=== PATIENT | female | born 1980 | race African-American/Black ===

== ENCOUNTER 2020-02-27 19:02 | Emergency (ER) | payer BC, SELFPAY ==
--- NOTE | ~2020-02-27 | CT_ITS ---
EXAMINATION: CT abdomen pelvis w con EXAM DATE: 02/27/2020 20:18 INDICATION: Low abdominal pain. TECHNIQUE: Spiral CT of the abdomen and pelvis was performed without contrast. Axial, coronal and s agittal images were reviewed. The dose-length product (DLP) for this examination was 1103.19 mGy-cm. The exposure was tailored according to patient size (auto mA exposure control), and iterative recon struction (ASIR) was used as additional dose reduction technique. There is no prior study for compar olga. FINDINGS: There is a mass in the right liver lobe inferiorly measuring about 3.6 cm with incomplete p eripheral nodular enhancement, appearance is consistent with hemangioma. Adrenal glands, spleen, panc reas are unremarkable. Gallbladder is unremarkable. No biliary obstruction. Portal and splenic vein s are patent. Kidneys enhance symmetrically. There is no hydronephrosis. Fibroid uterus. The saran dder is unremarkable. There is no retroperitoneal or pelvic lymphadenopathy. The appendix is normal. The stomach and small bowel are unremarkable. There is expected amount of c olonic stool. No free intraperitoneal gas. The heart is normal in size. There are no pericardial or pleural effusions. The lung bases are unremarkable. There are no osteoblastic or osteolytic les ions identified. IMPRESSION: 1. No acute intra-abdominal findings. 2. Liver mass consistent with hemangioma. 3. Fibroid uterus. Reviewed, dictated and finalized at location A.
--- NOTE | ~2020-02-27 | CT_ITS ---
EXAMINATION: CT facial bones w con EXAM DATE: 02/27/2020 20:20 INDICATION: Parotid mass. TECHNIQUE: Spiral CT of the facial bones was acquired in the axial plane without contrast. Coronal reformatted images were also reviewed. The dose-length product (DLP) for this examination was 1197.6 8 mGy-cm. The exposure was tailored according to patient size, and iterative reconstruction (ASIR) w as used as additional dose reduction technique. There is no prior study for comparison. FINDINGS: In the left masseter muscle there is region of lower density, and asymmetry, measuring abou t 1.6 cm, has a central calcification measuring 6 mm. Underlying mandible is unremarkable. Could be g ranulomatous process. This is a chronic finding or has is developed more recently? No upper cervical lymphadenopathy. IMPRESSION: Nonspecific mass within the left masseter, with central calcification. Central calcificat ion suggests could be chronic granulomatous process but recommend ENT consult for possible histologic correlation. Reviewed, dictated and finalized at location A. IMPRESSION: Nonspecific mass within the left masseter, with central calcificati on. Central calcification suggests could be chronic granulomatous process but r ecommend ENT consult for possible histologic correlation.
--- NOTE | 2020-02-27 19:08 | ED.GENADULT ---
HPI - General Adult General Chief complaint: Vaginal Bleeding Stated complaint: vaginal cramping/neck lump Time Seen by Provider: 02/27/20 19:08 Source: patient Mode of arrival: ambulatory Limitations: no limitations History of Present Illness HPI narrative: Patient is a 39-year-old female who presents for evaluation of lower abdominal pain. Patient reports that she is currently menstruating, has been having severe cramps with menstruation over the past 2-1/2 years. Patient has followed with Dr. Jackson in the past, but lost insurance, had no ability to afford primary care, thus has not sought care in over 2 years for this problem. Patient reports the pain is sharp, stabbing in nature in the lower abdomen without back pain. No fever, nausea or vomiting. No chest pain. Patient reports normal vaginal bleeding, denies mucoid discharge. She also reports some dysuria. Recent intercourse was 2 weeks ago. She had a history of a sexually transmitted infection in the year 1999 which was treated. No purulent discharge, no itching or lesions that the patient has noticed. Patient also reports that she has had a 2-year history of a mass on the left side of her face. She has been hiding it with her hair, and reports that it never bothered her much until it started to become somewhat firm and painful. Is worse with eating. No neck pain or neck swelling. Patient has no history of cancer. Related Data Allergies Allergy/AdvReac Type Severity Reaction Status Date / Time No Known Allergies Allergy Verified 02/27/20 20:01 Review of Systems Review of Systems: Narrative: CONSTITUTIONAL: Denies fever, chills, or sweats. EYES: Denies visual changes, redness, or discharge. ENT: Denies rhinorrhea, congestion, sore throat, or otalgia. CARDIOVASCULAR: Denies chest pain, palpitations, or edema. RESPIRATORY: Denies cough or dyspnea. GASTROINTESTINAL: Reports lower abdominal pain, denies nausea, vomiting or diarrhea GENITOURINARY: Reports dysuria, reports current menses SKIN: Denies rash or itching. MUSCULOSKELETAL: Denies back pain, joint pain, or myalgia. NEUROLOGIC: Denies headache, numbness, or weakness. [facility] Surgical History Surgical History (Updated 02/27/20 @ 19:20 by Darling Westfall MD) H/O tubal ligation Social History Social History (Updated 02/27/20 @ 19:20 by Darling Westfall MD) Smoking status: Never smoker Alcohol intake: never Substance use: never Gender identity (if verbalized by the patient): Female Exam Narrative: Exam Narrative: GENERAL: Awake, alert, conversant HEAD: Normocephalic, atraumatic. EYES: PERRLA and EOMI. ENT: Nares clear, no rhinorrhea or epistaxis. Mucous membranes moist. Mobile, firm mass approximately 2 cm, well-circumscribed left mandibular area, no cervical lymphadenopathy, no erythema, mildly tender to palpation. Nonfluctuant. NECK: Supple. CHEST: No respiratory distress, breathing even and non labored HEART: Regular rate, sinus rhythm ABDOMEN:Non distended, positive suprapubic tenderness to palpation, no guarding, nonrigid, no flank tenderness BROOM STITCHER/: Labia majora and minora normal without lesions. Vagina with+ blood, no brisk bleeding. No cervical motion tenderness. No adnexal tenderness or fullness bilaterally. No mucoid discharge present. EXTREMITIES: Normal range of motion. No edema. SKIN: Warm, dry, no rash. NEURO:No focal deficits. Alert and oriented x3 Course Course Emergency Course: The patient presented for evaluation of painful vaginal bleeding which is been present over the past 2 years for the patient, as well as chronic left facial mass. At the time of initial assessment, ABCs are intact and vital signs are stable. Physical examination notable for mobile, mildly tender mass about the left mandible. Nonerythematous. No associated lymphadenopathy. No thyromegaly. Laboratory results show mild anemia. This is likely related to the patient's chronic, very heavy menses. No UTI.
[2020-02-27 19:16] VITALS: BP 122/71; PULSE 72; RESP 18; TEMP 36.8; O2SAT 100
[2020-02-27 19:39] LABS: Basophils Percent Auto 0.5 % (0.2-1.2); Eosinophils Absolute Auto 0.2 K/mm3 (0-0.3); Eosinophils Percent Auto 2.2 % (0-4.4); Hematocrit 32.8 % (37.0-47.0); Hemoglobin 9.4 g/dL (12.0-15.0); Immature Granulocyte Absolute 0.01 K/mm3 (0.00-0.031); Immature Granulocyte Percent A 0.1 % (0-0.5); Lymphocytes Absolute Auto 2.05 K/mm3 (0.9-3.2); Lymphocytes Percent Auto 27.7 % (18.3-44.2); Mean Corpuscular HGB Conc 28.7 g/dl (32-36); Mean Corpuscular Hemoglobin 20.5 pg (26-34); Mean Corpuscular Volume 71.5 fl (80-100); Mean Platelet Volume 10.3 fl (7.4-10.4); Monocytes Absolute Auto 0.5 K/mm3 (0.1-0.6); Monocytes Percent Auto 7.3 % (2.6-8.5); Neutrophils Absolute Auto 4.6 K/mm3 (1.3-6.7); Neutrophils Percent Auto 62.2 % (45.5-73.1); Platelet Count Result 328 k/mm3 (150-375); Red Blood Count 4.59 M/mm3 (4.2-5.4); Red Cell Distribution Width 18.2 % (11.5-14.5); White Blood Count 7.4 K/mm3 (4.5-10.0)
[2020-02-27 19:44] LABS: Add Urine Microscopic? YES; Appearance Urine Clear (Clear); Bilirubin Urine Negative (Negative); Blood Urine 3+ (Negative); Color Urine Yellow (Yellow); Glucose Urine UA Negative (Negative); Ketones Urine Negative (Negative); Leukocyte Esterase Ur Trace LEU/UL (Negative); Mucus Urine Rare /lpf; Nitrate Urine Negative (Negative); Protein Urine 1+ mg/dL (Negative); RBC Urine >75 /hpf (0-2); Specific Grav Ur 1.025 (1.001-1.035); Squamous Epithelial Cell Urine Many /hpf (Few); Urobilinogen Urine Negative mg/dL (<2.0)
[2020-02-27 19:49] LABS: Hypochromasia 2+ (NORMAL); Platelet Estimate Adequate (Adequate); Stomatocytes 1+ (NORMAL)
[2020-02-27 19:51] LABS: Alanine Aminotransferase 16 U/L (4-35); Albumin Level 4.6 g/dL (3.5-5.1); Alkaline Phosphatase 66 U/L (38-126); Aspartate Amino Transferase 25 U/L (14-36); Bilirubin,Total 0.5 mg/dL (0.2-1.3); Blood Urea Nitrogen 9 mg/dL (7-17); Calcium 9.4 mg/dL (8.4-10.2); Carbon Dioxide 23 mmol/L (22-30); Chloride 107 mmol/L (98-107); Estimated CRCL calculation 100 ml/min; Estimated Glomerular Filt Rate > 60; Glucose 99 mg/dL (65-105); Potassium 3.6 mmol/L (3.4-5.0); Sodium 138 mmol/L (137-145)
[2020-02-27 19:54] LABS: Target Cells 1+ (NORMAL)
[2020-02-27 19:55] LABS: Ovalocytes 1+ (NORMAL)
[2020-02-27] MEDS: ACETAMINOPHEN 500 MG TABLET 1000 MG PO (20:32)
[2020-02-27] MEDS: SODIUM CHLORIDE 0.9% IV 1,000 ML 999 ML IV CONT (20:32)
[2020-02-27] MEDS: ONDANSETRON INJ 4 MG/2 ML VIAL IV PUSH (20:32)
[2020-02-27] MEDS: MORPHINE SULFATE 4 MG/ML INJ IV PUSH (20:32)
[2020-02-27 20:33] VITALS: BP 111/68; PULSE 64; RESP 18; O2SAT 100
[2020-02-27 21:33] VITALS: BP 120/69; PULSE 60; RESP 16; TEMP 36.7; O2SAT 100
[2020-02-27 21:56] VITALS: BP 120/69; PULSE 60; RESP 16; TEMP 36.7; O2SAT 100
== END 2020-02-27 22:14 | disposition home or self-care (01) ==
PROVIDERS: Emergency Provider Emergency Medicine
DX: N93.8 Other specified abnormal uterine and vaginal bleeding (principal); D25.9 Leiomyoma of uterus, unspecified; M62.89 Other specified disorders of muscle; A59.00 Urogenital trichomoniasis, unspecified; D64.9 Anemia, unspecified; R16.0 Hepatomegaly, not elsewhere classified
CPT/HCPCS: 36415; 70487; 74177; 80053; 81001; 81025; 85025; 87070; 87491; 87591; 87808; 96361; 96374; 96375; 99284; A9270; J2270; J2405; J7030; Q9967

== ENCOUNTER 2020-03-27 05:48 | Outpatient (CLI) | payer BC, SELFPAY ==
[2020-03-27 16:38] LABS: SARS-CoV-2 RNA PCR Negative
== END 2020-03-27 05:49 | disposition home or self-care (01) ==
LOC: ANHCOVIDDT 05:49
PROVIDERS: Visit Provider Obstetrics & Gynecology Gynecology
DX: Z01.818 Encounter for other preprocedural examination (principal); Z11.59 Encounter for screening for other viral diseases
CPT/HCPCS: 87635; U0003

== ENCOUNTER 2020-03-28 16:44 | Inpatient (IN) | payer BC, SELFPAY ==
[2020-03-27 11:10] VITALS: BMI 33.3
[2020-03-28] VITALS (12 sets, daily range): BP systolic 99–135; BP diastolic 55–98; PULSE 48–87; RESP 12–29; TEMP 36.1–37.2; O2SAT 96–100
[2020-03-28] MEDS: LACTATED RINGERS 1,000 ML 30 ML IV CONT ×2 (12:30→14:30)
--- NOTE | 2020-03-28 12:32 | WPDANESEPPF ---
Anes - Initial Pre Proc Eval Procedure: Operation Date: 03/28/20 13:30 Proposed Procedures p Hysteroscopy Dilation and Curettage With Myosure - Suzi Jackson MD Date/Time: 03/28/20 12:32 Surgeon: Suzi Jackson MD Pre Op Diagnosis: Menorrhagia With Anemia Patient Data Age: 39 Gender: F Height: 5 ft 4 in Weight: 88.8 kg Last Vital Signs Temp 37.2 C 03/28/20 12:10 Pulse 63 03/28/20 12:10 Resp 15 03/28/20 12:10 BP 125/57 L 03/28/20 12:10 Pulse Ox 100 03/28/20 12:10 Allergies Allergy/AdvReac Type Severity Reaction Status Date / Time No Known Allergies Allergy Verified 03/27/20 11:11 Home Medications Medication Instructions Recorded Confirmed Type ferrous sulfate 325 mg PO BID 30 Days #60 tablet 02/27/20 03/27/20 Rx cyclobenzaprine 10 mg PO TID 03/27/20 03/27/20 History Patient hx anesthesia problems: none Family hx anesthesia problems: none PMFSH Past Medical History Medical History Anemia Surgical History Surgical History H/O tubal ligation Social History Social History Smoking status: Never smoker Alcohol intake: never Substance use: never Gender identity (if verbalized by the patient): Female Anes - Eval Final PreProcedure Day of Procedure 03/28/20 12:32 Patient weight: obese Heart: regular rate and rhythm Lungs: clear to auscultation Airway: Mallampati scale class II Neurological: alert and oriented Last oral intake: >/= 8 hours ASA classification: II Emergent: no Anesthetic plan: proceed Anesthesia type and monitoring: general GIVS and standard monitoring Informed Consent: The patient's anesthetic plan and its attendant risks and benefits were discussed with the patient/family/POA. Questions were solicited and answers provided to the satisfaction of the patient/family/POA.
--- NOTE | 2020-03-28 13:07 | PM.HPGS ---
History of Present Illness History of Present Illness Consent: Risks, benefits, and alternatives have been discussed and questions answered. Patient agrees to proceed with procedure. Chief complaint: Menorrhagia With Anemia Narrative: Niurka Daly is a 39 year old female with menorrhagia and anemia. U/s done showed fibroid. Recommend to evaluate with hysteroscopy D&C and if needed myosure. Risks of infection, bleeding, perforation, and fluid imbalance reviewed. Agrees to proceed. [facility] Past Medical History Medical History (Updated 03/28/20 @ 13:09 by Suzi Jackson MD) Anemia Anxiety Depression PTSD (post-traumatic stress disorder) Twin delivery by Surgical History Surgical History H/O tubal ligation Social History Social History Smoking status: Never smoker Alcohol intake: never Substance use: never Gender identity (if verbalized by the patient): Female Meds Home Medications and Allergies Home Medications Medication Instructions Recorded Confirmed Type ferrous sulfate 325 mg PO BID 30 Days #60 tablet 02/27/20 03/28/20 Rx cyclobenzaprine 10 mg PO TID 03/27/20 03/28/20 History Allergies Allergy/AdvReac Type Severity Reaction Status Date / Time No Known Allergies Allergy Verified 03/27/20 11:11 Vital Signs Vital Signs - 24 hr 03/28/20 12:10 Temperature 98.9 F Pulse Rate 63 Respiratory Rate 15 Blood Pressure 125/57 L Pulse Oximetry 100 Exam Const: General: healthy appearing and alert Orientation/consciousness: patient oriented x3 Resp: Effort & Inspection: normal respiratory effort Auscultation: clear to auscultation bilaterally Cardio: Rate: regular rate Rhythm: regular rhythm GI: GI Palp: Yes Soft to palpation, No Tenderness to palpation present (GI) and No Palpable mass present : External Female Exam: normal external appearance Speculum Exam - Vagina: normal appearance of the vagina and normal vaginal discharge Speculum Exam - Cervix: normal appearance of the cervix Bimanual exam- vagina & uterus: uterine size normal and consistency normal Bimanual Exam- Adnexa, other: normal adnexae and No adnexal tenderness Neuro: General: patient oriented x3 Assessment and Plan Assessment and plan (1) Menorrhagia: Code(s): N92.0 - Excessive and frequent menstruation with regular cycle Status: Acute Assessment and Plan: proceed with hysteroscopy with D&C, possible myosure
--- NOTE | 2020-03-28 14:01 | SUR.OPER ---
5000 ml of saline in 3700 ml of saline out
--- NOTE | 2020-03-28 14:04 | PM.OP ---
Procedure Note - Brief Procedure Note - Brief Date of procedure: 03/28/20 Pre-op diagnosis: Menorrhagia With Anemia Post-op diagnosis: same Procedure performed: D&C hysterscopy with myosure Anesthesia: MAC and local Surgeon: Suzi Jackson MD Estimated blood loss (mL): 300 Drains: Yes (franco catheter in uterus with 20 cc balloon inflation) Packing: No Pathology: yes (endometrial shavings) Complications: Other complications (fluid imbalance; post op bleeding) Condition: stable Disposition: PACU Findings: Uterus 11 cm; large fibroid filling about 1/2 cavity originating from left sidewall; post op after I had left the OR patient with onset of heavy bleeding vaginally; vaginal canal cleared of blood and cervix visualized without tenaculum site bleeding; bleeding through cervix from endometrium; catheter placed in uterus with 20 cc balloon inflation.
[2020-03-28] MEDS: ONDANSETRON INJ 4 MG/2 ML VIAL IV PUSH (16:17)
[2020-03-28 16:19] LABS: Basophils Percent Auto 0.5 % (0.2-1.2); Eosinophils Absolute Auto 0.1 K/mm3 (0-0.3); Eosinophils Percent Auto 2.1 % (0-4.4); Hematocrit 36.2 % (37.0-47.0); Hemoglobin 10.5 g/dL (12.0-15.0); Immature Granulocyte Absolute 0.01 K/mm3 (0.00-0.031); Immature Granulocyte Percent A 0.2 % (0-0.5); Lymphocytes Percent Auto 29.7 % (18.3-44.2); Mean Corpuscular Hemoglobin 23.5 pg (26-34); Mean Corpuscular Volume 81.2 fl (80-100); Mean Platelet Volume 9.8 fl (7.4-10.4); Monocytes Absolute Auto 0.3 K/mm3 (0.1-0.6); Monocytes Percent Auto 6.2 % (2.6-8.5); Neutrophils Absolute Auto 2.7 K/mm3 (1.3-6.7); Neutrophils Percent Auto 61.3 % (45.5-73.1); Platelet Count Result 242 k/mm3 (150-375); Red Blood Count 4.46 M/mm3 (4.2-5.4); Red Cell Distribution Width 24.2 % (11.5-14.5); White Blood Count 4.4 K/mm3 (4.5-10.0)
[2020-03-28 16:33] LABS: Blood Urea Nitrogen 8 mg/dL (7-17); Calcium 7.8 mg/dL (8.4-10.2); Carbon Dioxide 21 mmol/L (22-30); Chloride 109 mmol/L (98-107); Estimated CRCL calculation 114 ml/min; Estimated Glomerular Filt Rate > 60; Glucose 79 mg/dL (65-105); Potassium 4.1 mmol/L (3.4-5.0); Sodium 134 mmol/L (137-145)
[2020-03-28 16:37] LABS: Platelet Estimate Adequate (Adequate)
[2020-03-28 16:38] LABS: Anisocytosis 3+ (NORMAL); Hypochromasia 1+ (NORMAL)
--- NOTE | 2020-03-28 16:38 | SUR.PHASEI ---
1545; DR GIRON AT BEDSIDE SPEAKING TO PT REGARDING PROCEDURE
--- NOTE | 2020-03-28 16:45 | PC.NURSE ---
Transferred to room 290 per stretcher. Pt. able to move all extremities and assist with moving over to the bed without difficulty. Alert and oriented x3.
[2020-03-28] MEDS: IBUPROFEN 600 MG TABLET PO (18:09)
[2020-03-28] MEDS: FERROUS SULFATE 324 MG TABLET PO (18:10)
--- NOTE | 2020-03-28 22:04 | OP_ITS ---
DATE OF PROCEDURE: 03/28/2020 PREOPERATIVE DIAGNOSIS: Menorrhagia with fibroids. POSTOPERATIVE DIAGNOSIS: Menorrhagia with fibroids. PROCEDURE: D and C hysteroscopy with MyoSure resection of approximately half of the fibroids. ANESTHESIA: MAC and local. FINDINGS: The cervix is stenotic. The uterus sounds to 8.5 cm. There is a large fibroid filling approximately half of the cavity appearing to arise from the left lateral sidewall. The remainder of the cavity is poorly visualized, but no other gross abnormalities are seen. ESTIMATED BLOOD LOSS: Approximately 300 mL. PATHOLOGY: Endometrial shavings. DESCRIPTION OF PROCEDURE: The patient was taken to the operating room, placed under anesthesia in the dorsal lithotomy position. She was prepped and draped in the usual sterile fashion. [place] speculum was placed in the vagina. Cervix was grasped on the anterior lip with a tenaculum and injected with 1% lidocaine. The uterus was attempted to be sounded and this was not successful. The Os Finders were used and the os was able to be entered. The uterus was then sounded to 8.5 cm. Cervix was serially dilated with [place]. The diagnostic hysteroscope was placed with the above-stated findings. The MyoSure device was opened and placed under direct visualization. The fibroid was removed approximately one-half in volume and taken output are kept after each liter and they were matched in so liter 5. Liter 4. Input output was, 3800 out, 4000 in. Liter 5 output was again 3800 with no additional return, therefore a 1200 cc deficit. The case was stopped due to the fluid deficit. Instruments were removed. I left the operating room suite while the staff was cleaning up the patient and getting her cleaned up. The patient started having vaginal bleeding and I was called to return to the operating room. Upon inspection and placing the speculum, the vagina was full of blood and clots. Once the bleeding is sufficiently cleared, the cervix was visualized and the tenaculum sites were not bleeding. The bleeding appears to be coming through the cervix. Sponge sticks were used to hold pressure on the cervix and allow additional time to see if the bleeding stopped on its own. This was not successful. I asked for and placed a 30 cc Clemens catheter with 20 cc placed into the balloon within the endometrial cavity. Bleeding at that time stopped. The patient was also given 1 g of tranexamic acid. The patient was observed for several minutes. No additional bleeding was noted. The Clemens portion of the catheter is kept off. The patient was then taken to Recovery in stable condition with the intent of admission for observation of bleeding. D I MT: June
[2020-03-29] VITALS (14 sets, daily range): BP systolic 99–129; BP diastolic 34–92; PULSE 53–96; RESP 14–21; TEMP 36.3–38.9; O2SAT 95–100
[2020-03-29] MEDS: IBUPROFEN 600 MG TABLET PO (02:00)
--- NOTE | 2020-03-29 12:25 | PC.NURSE ---
Patient taken to pre-op per stretcher. Glasses sent with patient, other belongings left in the room.
[2020-03-29] MEDS: LACTATED RINGERS 1,000 ML 30 ML IV CONT (12:30)
--- NOTE | 2020-03-29 12:32 | WPDANESEPPF ---
Anes - Initial Pre Proc Eval Procedure: Operation Date: 03/28/20 13:30 Proposed Procedures p Hysteroscopy Dilation and Curettage With Myosure - Suzi Jackson MD Operation Date: 03/29/20 13:30 Proposed Procedures p Hysteroscopy Dilation and Curettage With Myosure - Suzi Jackson MD Date/Time: 03/29/20 12:32 Surgeon: Suzi Jackson MD Pre Op Diagnosis: Menorrhagia With Anemia Patient Data Age: 39 Gender: F Height: 5 ft 4 in Weight: 88.8 kg Last Vital Signs Temp 36.8 C 03/29/20 08:45 Pulse 60 03/29/20 08:45 Resp 18 03/29/20 08:45 BP 99/55 L 03/29/20 08:45 Pulse Ox 100 03/29/20 08:45 Allergies Allergy/AdvReac Type Severity Reaction Status Date / Time No Known Allergies Allergy Verified 03/29/20 12:34 Home Medications Medication Instructions Recorded Confirmed Type ferrous sulfate 325 mg PO BID 30 Days #60 tablet 02/27/20 03/28/20 Rx cyclobenzaprine 10 mg PO TID 03/27/20 03/28/20 History Laboratory Tests 03/28/20 03/28/20 16:14 16:14 WBC 4.4 K/mm3 L K/mm3 (4.5-10.0) RBC 4.46 M/mm3 M/mm3 (4.2-5.4) Hgb 10.5 g/dL L g/dL (12.0-15.0) Hct 36.2 % L % (37.0-47.0) MCV 81.2 fl fl (80-100) MCH 23.5 pg L pg (26-34) MCHC 29.0 g/dl L g/dl (32-36) RDW 24.2 % H % (11.5-14.5) Plt Count 242 k/mm3 k/mm3 (150-375) MPV 9.8 fl fl (7.4-10.4) Immature Gran % (Auto) 0.2 % % (0-0.5) Neut % (Auto) 61.3 % % (45.5-73.1) Lymph % (Auto) 29.7 % % (18.3-44.2) [place] % (Auto) 6.2 % % (2.6-8.5) Eos % (Auto) 2.1 % % (0-4.4) Baso % (Auto) 0.5 % % (0.2-1.2) Lymph # (Auto) 1.30 K/mm3 K/mm3 (0.9-3.2) [place] # (Auto) 0.3 K/mm3 K/mm3 (0.1-0.6) Eos # (Auto) 0.1 K/mm3 K/mm3 (0-0.3) Baso # (Auto) 0.0 K/mm3 K/mm3 (0.0-0.1) Abs Immat Gran (auto) 0.01 K/mm3 K/mm3 (0.00-0.031) Absolute Neuts (auto) 2.7 K/mm3 K/mm3 (1.3-6.7) Absolute Nucleated RBC 0.0 K/mm3 K/mm3 (0.0-0.012) Nucleated RBC % 0.0 % % (0.0-0.2) Platelet Estimate Adequate (Adequate) Hypochromasia 1+ (NORMAL) Anisocytosis 3+ (NORMAL) Sodium 134 mmol/L L mmol/L (137-145) Potassium 4.1 mmol/L mmol/L (3.4-5.0) Chloride 109 mmol/L H mmol/L (98-107) Carbon Dioxide 21 mmol/L L mmol/L (22-30) BUN 8 mg/dL mg/dL (7-17) Creatinine 0.60 mg/dL L mg/dL (0.7-1.0) Estim Creat Clear Calc 114 ml/min ml/min Estimated GFR > 60 (59 - ) Glucose 79 mg/dL mg/dL (65-105) Calcium 7.8 mg/dL L mg/dL (8.4-10.2) Patient hx anesthesia problems: none Family hx anesthesia problems: none PMFSH Past Medical History Medical History Anemia Anxiety Depression PTSD (post-traumatic stress disorder) Twin delivery by Surgical History Surgical History H/O tubal ligation Social History Social History Smoking status: Never smoker Alcohol intake: never Substance use: never Gender identity (if verbalized by the patient): Female Anes - Eval Final PreProcedure Day of Procedure 03/29/20 12:32 Patient weight: obese Heart: regular rate and rhythm Lungs: clear to auscultation Airway: Mallampati scale class II Neurological: alert and oriented Last oral intake: >/= 8 hours ASA classification: II Emergent: no Anesthetic plan: proceed Anesthesia type and monitoring: general LMA and standard monitoring Informed Consent: The patient's anesthetic plan and its attendant risks and benefits were discussed with the patient/family/POA. Questions were solicited and answers provided to the satisfaction of the patient/family/POA.
--- NOTE | 2020-03-29 12:52 | PM.GYNPNOP ---
WELL PULLER - A/P Assessment and plan (1) Menorrhagia: Code(s): N92.0 - Excessive and frequent menstruation with regular cycle Status: Acute Assessment and Plan: bleeding stable overnight plan to proceed with removal of catheter in OR If able to visualize and remove remainder of fibroid, will proceed with myosure. Then plan endometrial ablation. If unable to visualize to remove the remainder of the fibroid, will proceed with endometrial ablation. Patient agrees to plan. Postoperative Procedures: Procedures Operation Date: 03/28/20 13:30 Actual Procedures Side Surgeon p Hysteroscopy Dilation and Curettage With Myosure Not Applicable Suzi Jackson MD Operation Date: 03/29/20 13:30 <No data on this case meets the specified criteria> Time Spent With Patient Time: Total time spent is greater than 50% in coordination of care (as documented) at patient's floor/unit and/or counseling patient: Time with patient: less than 15 minutes WELL PULLER- PN:Subj Post-Op Subjective Date/time seen: 03/29/20 12:52 Interval history: minimal bleeding overnight no complaints Exam GI: Other: soft, nt : Other: franco in place in uterus minimal blood on pad WELL PULLER - PN: Obj Data Vital Signs Vital Signs: Vital Signs - 24 hr 03/28/20 14:30 03/28/20 14:45 03/28/20 15:00 Temperature 96.9 F L 97.0 F L 97.4 F L Pulse Rate 87 55 L 62 Respiratory Rate 29 H 16 18 Blood Pressure 114/72 128/78 128/74 Pulse Oximetry 96 100 98 03/28/20 15:15 03/28/20 15:30 03/28/20 15:45 Temperature 97.2 F L 97.5 F L 97.5 F L Pulse Rate 50 L 48 L 54 L Respiratory Rate 16 14 14 Blood Pressure 103/62 100/69 101/55 L Pulse Oximetry 97 100 100 03/28/20 16:00 03/28/20 16:15 03/28/20 16:55 Temperature 97.4 F L 98.1 F Pulse Rate 51 L 55 L 67 Respiratory Rate 12 16 20 Blood Pressure 109/57 L 104/63 135/98 H Pulse Oximetry 100 98 100 03/28/20 19:15 03/28/20 23:00 03/29/20 05:05 Temperature 98.2 F 98.3 F 97.7 F Pulse Rate 64 64 58 L Respiratory Rate 15 14 14 Blood Pressure 111/58 L 99/56 L 103/46 L Pulse Oximetry 99 100 100 03/29/20 08:45 03/29/20 12:10 Temperature 98.3 F 98.0 F Pulse Rate 60 53 L Respiratory Rate 18 18 Blood Pressure 99/55 L 103/34 L Pulse Oximetry 100 100 Intake/Output Intake/Output: Intake & Output 03/26/20 03/27/20 03/28/20 03/29/20 23:59 23:59 23:59 23:59 Intake Total 650 Output Total 400 1150 Balance 250 -1150 Meds/Results Medications: Active Medications Generic Name Dose Route Start Last Admin Trade Name Freq PRN Reason Stop Dose Admin Acetaminophen 650 mg 03/28/20 16:44 Tylenol Tablet PO Q4H PRN Mild Pain (1-3) or Fever Hydrocodone Bitart/Acetaminophen 1 tab 03/28/20 18:54 03/28/20 22:00 [place] 10-325 Mg PO 1 tab Q3H PRN Administration Pain Rated 7-10 Hydrocodone Bitart/Acetaminophen 1 tab 03/28/20 18:54 03/29/20 02:00 [place] 5-325 Mg PO 1 tab Q3H PRN Administration Moderate Pain (4-6) Fentanyl Citrate 25 mcg 03/29/20 12:34 Sublimaze IV PUSH Q2M PRN Pain Ferrous Sulfate 324 mg 03/28/20 17:00 03/28/20 18:10 Ferrous Sulfate PO 324 mg BIDWM BRENDA Administration Lactated Ringer's 1,000 mls @ 30 mls/hr 03/29/20 12:35 Lr - Lactated Ringers Iv IV CONT .Q24H BRENDA Ibuprofen 600 mg 03/28/20 16:44 03/29/20 02:00 Motrin PO 600 mg Q6H PRN Administration Mild Pain (1-3) or Fever Ondansetron HCl 4 mg 03/28/20 16:44 Zofran Inj IV PUSH Q6H PRN Nausea And Vomiting Ondansetron HCl 4 mg 03/29/20 12:34 Zofran Inj IV PUSH ONCE PRN Nausea Oxycodone HCl 5 mg 03/29/20 12:34 Roxicodone Ir Tablet PO ONCE PRN Pain Labs CBC & Chem 7: 0514/20 16:14 03/28/20 16:14 Labs: Laboratory Results - last 24 hr 03/28/20 03/28/20 16:14 16:14 WBC 4.4 L RBC 4.46 Hgb 10.5 L Hct 36.2 L MCV 81.2 MCH 23.5
--- NOTE | 2020-03-29 13:47 | SUR.OPER ---
2350ml ns infused 1100ml fluid output aware
--- NOTE | 2020-03-29 13:47 | PM.OP ---
Procedure Note - Brief Procedure Note - Brief Date of procedure: 03/29/20 Pre-op diagnosis: Menorrhagia With Anemia fibroid Post-op diagnosis: same Procedure performed: D&C hysteroscopy with myosure and [place] ablation Anesthesia: GLMA Surgeon: Suzi Jackson MD Estimated blood loss (mL): 50 Drains: No Packing: No Pathology: yes Complications: Other complications (fluid imbalance (2350 in/1100 out)) Condition: stable Disposition: PACU Findings: fibroid left side wall about 1/3 prior size; some able to be excised with myosure before fluid imbalance recurred; remainder of endometrium appears normal; Uterus 12 cm; [place] set on 6.5 cm and balloon in cervical canal so reset for 6 cm and good seal with balloon
--- NOTE | 2020-03-29 13:57 | P.DS_ITS ---
DS: Diagnosis Admitting Diagnosis Admitting Diagnosis: COVID-19 Discharge Diagnosis (1) Menorrhagia: Code(s): N92.0 - Excessive and frequent menstruation with regular cycle Status: Acute (2) Anemia: Code(s): D64.9 - Anemia, unspecified Status: Acute DS: Summary Time Spent with Patient Time attestation: Total time spent providing and/or coordinating discharge services: DS: Data Data Completed and Pending Pending studies at discharge: Pending at discharge 03/28/20 14:29 Surgical [PTH] Routine 03/29/20 13:42 Surgical [PTH] Routine Labs on day of discharge: Labs from last 24 hours 03/28/20 03/28/20 16:14 16:14 WBC 4.4 L RBC 4.46 Hgb 10.5 L Hct 36.2 L MCV 81.2 MCH 23.5 L MCHC 29.0 L RDW 24.2 H Plt Count 242 MPV 9.8 Immature Gran % (Auto) 0.2 Neut % (Auto) 61.3 Lymph % (Auto) 29.7 [place] % (Auto) 6.2 Eos % (Auto) 2.1 Baso % (Auto) 0.5 Lymph # (Auto) 1.30 [place] # (Auto) 0.3 Eos # (Auto) 0.1 Baso # (Auto) 0.0 Abs Immat Gran (auto) 0.01 Absolute Neuts (auto) 2.7 Absolute Nucleated RBC 0.0 Nucleated RBC % 0.0 Platelet Estimate Adequate Hypochromasia 1+ Anisocytosis 3+ Sodium 134 L Potassium 4.1 Chloride 109 H Carbon Dioxide 21 L BUN 8 Creatinine 0.60 L Estim Creat Clear Calc 114 Estimated GFR > 60 Glucose 79 Calcium 7.8 L Discharge Plan Discharge Attending physician on discharge: Suzi Jackson Discharging Clinician: Suzi Jackson Anticipated Discharge Date/Time: 03/29/20 17:00 Patient Disposition: Home, Self-Care Activity: pelvic rest Diet: regular Discharge Instructions: No driving for 24 hours Patient Instructions: Antibiotic Form Stand Alone Forms: General Discharge Information Follow-up/Referrals: Suzi Jackson MD [Physician] - 1 Week Discharge Medications: Continued cyclobenzaprine 10 mg tablet 10 mg PO TID RF: 0 ferrous sulfate 325 mg (65 mg iron) tablet 325 mg PO BID 30 Days Qty: 60 RF: 0 Other Ambulatory Orders: SARS-CoV-2 RNA, Qual RT-PCR (Routine) Timeframe: 3 Months Facility: [facility] Ordered By: Suzi Jackson Date of admission: 03/28/20 16:44 Primary Care Provider: PHYSICIAN,ELECTRICAL MAINTENANCE SUPERVISOR Admitting Provider: Suzi Jackson Attending physician on admission: Suzi Jackson Condition: Stable
[2020-03-29 14:42] LABS: Blood Urea Nitrogen 5 mg/dL (7-17); Calcium 7.8 mg/dL (8.4-10.2); Carbon Dioxide 25 mmol/L (22-30); Chloride 109 mmol/L (98-107); Estimated CRCL calculation 99 ml/min; Estimated Glomerular Filt Rate > 60; Glucose 80 mg/dL (65-105); Potassium 3.8 mmol/L (3.4-5.0); Sodium 134 mmol/L (137-145)
[2020-03-29] MEDS: ONDANSETRON INJ 4 MG/2 ML VIAL IV PUSH (16:24)
--- NOTE | 2020-03-29 17:30 | PC.NURSE ---
Addendum entered by Vida Ortega RN 03/29/20 19:05: Pt to floor at 1530. Original Note: Pt returned to room 290 via stretcher from PACU.
--- NOTE | 2020-03-29 18:36 | OP_ITS ---
DATE OF PROCEDURE: 03/28/2020 PREOPERATIVE DIAGNOSES: Menorrhagia, anemia, and fibroid uterus. POSTOPERATIVE DIAGNOSES: Menorrhagia, anemia, and fibroid uterus. PROCEDURE PERFORMED: D and C, hysteroscopy with MyoSure resection of fibroid, endometrial ablation with Chelsea device. SURGEON: Suzi Jackson MD. ANESTHESIA: General with LMA. FINDINGS: The endometrial cavity is well visualized. There is approximately one-third of the prior fibroid left at beginning of the procedure. The remainder of the endometrium appears grossly normal. The uterus sounds to 12 cm. ESTIMATED BLOOD LOSS: 50 cc. PATHOLOGY: Endometrial shavings. DESCRIPTION OF PROCEDURE: The patient was taken to the operating room, placed under anesthesia in the dorsal lithotomy position. She was prepped and draped in the usual sterile fashion. The OR staff removed the Clemens catheter from the uterine cavity. The bivalved speculum was placed in the vagina. The cervix was grasped on the anterior lip with a tenaculum and the cervix was noted to still be dilated from the catheter. The 8 Hegar passes easily. The hysteroscope was placed and the cavity cleared of blood. Good visualization is noted. Approximately, one-third of the prior fibroid was left on the left lateral sidewall. The remainder of the endometrium appeared grossly normal. The MyoSure device was opened and placed. The resection of some of the fibroid was able to be performed before a fluid imbalance recurred. The total input was 2350, the total output was 1100. The MyoSure was then stopped and the Chelsea device opened and placed with the uterine cavity sounding to 12 cm. I initially set at the Chelsea for 6.5 cm; however, when I inflated the balloon, it was noted to be in the cervical canal. The Chelsea was reset for 6 cm and a good seal was able to be obtained with the bullet. The cavity assessment passed and the treatment cycle went full 2 minutes. The Chelsea device was removed. The hysteroscope was briefly replaced and a good ablation effect was noted. All instruments except for the speculum were removed and the patient was observed for bleeding for approximately 3 minutes. No significant bleeding was noted. The speculum was removed. The patient was awakened from anesthesia and taken to Recovery in stable condition. D I MT: June
== END 2020-03-29 20:35 | disposition home or self-care (01) | DRG 743 ==
LOC: ANHOB2 03-29 12:10
PROVIDERS: Admitting Provider Obstetrics & Gynecology Gynecology; Visit Provider Obstetrics & Gynecology Gynecology
PROC: 0U5B8ZZ Destruction of Endometrium, Via Natural or Artificial Opening Endoscopic (ICD-10-PCS; CPT 58563; principal; 2020-03-28 13:30)
DX: D25.0 Submucous leiomyoma of uterus (principal); N92.0 Excessive and frequent menstruation with regular cycle; D64.9 Anemia, unspecified; E66.9 Obesity, unspecified; Z68.33 Body mass index [BMI] 33.0-33.9, adult; F41.8 Other specified anxiety disorders; F43.10 Post-traumatic stress disorder, unspecified
CPT/HCPCS: 36415; 80048; 85025; 87635; 88305; 99199; A9270; J0131; J1100; J2250; J2405; J2704; J3010; J7030; J7120; U0003

== ENCOUNTER 2020-09-29 15:07 | Emergency (ER) | payer BC, OTHER, SELFPAY ==
[2020-09-29 15:35] VITALS: BP 122/65; PULSE 100; RESP 20; TEMP 37; O2SAT 100
--- NOTE | 2020-09-29 15:56 | PC.NURSE ---
patient here in ED room 16 with c/o abscess in left axilla area. see triage notes. patient has had I/D before for same symptoms. assessments documented. gown given to patient. blanket given. alert. oriented. family member in room. denies needs at this time.
--- NOTE | 2020-09-29 16:10 | PC.NURSE ---
provider in room now for procedure.
--- NOTE | 2020-09-29 16:19 | ED.GENADULT ---
HPI - General Adult General Chief complaint: Skin/Abscess/Foreign Body Stated complaint: Boil under my left arm Time Seen by Provider: 09/29/20 15:23 Source: patient Mode of arrival: ambulatory Limitations: no limitations History of Present Illness HPI narrative: Patient is a 40-year-old female who presents with abscess in the left armpit with history of similar occurrence patient notes aching pain for the last several days with similar occurrences in the past patient on arrival in the room Related Data Home Medications Medication Instructions Recorded Confirmed cyclobenzaprine 10 mg PO TID 03/27/20 03/29/20 Allergies Allergy/AdvReac Type Severity Reaction Status Date / Time No Known Allergies Allergy Verified 03/29/20 12:34 Review of Systems Review of Systems: All systems reviewed & are unremarkable except as noted in HPI and below PMFSH Past Medical History Medical History (Updated 09/29/20 @ 16:26 by Sha Cespedes PA-C) Anemia Anxiety Depression PTSD (post-traumatic stress disorder) Twin delivery by Surgical History Surgical History H/O tubal ligation Social History Social History Smoking status: Never smoker Alcohol intake: never Substance use: never Gender identity (if verbalized by the patient): Female Exam Narrative: Exam Narrative: GENERAL: Well-appearing, well-nourished, and in no acute distress. HEAD: Normocephalic, atraumatic. EYES: PERRLA and EOMI. ENT: Nares clear, no rhinorrhea or epistaxis. Mucous membranes moist. EXTREMITIES: Normal range of motion. No edema. SKIN: Warm, dry, no rash. Red tender swollen 2 cm area left adnexa NEURO: No focal deficits. Alert and oriented x3. Neurovascularly intact PSYCH: Normal mood and affect. Course Course Emergency Course: Patient with I&D of the abscess of the left adnexa felt appropriate for discharge home wound cultures were obtained afebrile nontoxic-appearing no emesis Vital Signs Vital signs: Vital Signs Temperature 98.6 F 09/29/20 15:35 Pulse Rate 100 09/29/20 15:35 Respiratory Rate 20 09/29/20 15:35 Blood Pressure 122/65 09/29/20 15:35 Pulse Oximetry 100 11/15/20 15:35 Temperature 98.6 F 09/29/20 15:35 Pulse Rate 100 09/29/20 15:35 Respiratory Rate 20 09/29/20 15:35 Blood Pressure 122/65 09/29/20 15:35 Pulse Oximetry 100 09/29/20 15:35 Procedures Abscess I/D upper extremity: Date of Incision: 09/29/20 Time of Incision: 16:25 Side (if applicable): left Local Anesthetic: lidocaine 1% Technique: incised with #11 blade Packing used?: iodoform I&D Results: Pus and Blood Complications: pain Medical Decision Making MDM Narrative Medical decision making narrative: Skin abscess was I&D it and drained in the emergency department will be referred to surgery and primary care for further evaluation given reasons to return Vital Signs Vital Signs: Vital Signs Temperature 98.6 F 09/29/20 15:35 Pulse Rate 100 09/29/20 15:35 Respiratory Rate 20 09/29/20 15:35 Blood Pressure 122/65 09/29/20 15:35 Pulse Oximetry 100 09/29/20 15:35 Temperature 98.6 F 09/29/20 15:35 Pulse Rate 100 09/29/20 15:35 Respiratory Rate 20 09/29/20 15:35 Blood Pressure 122/65 09/29/20 15:35 Pulse Oximetry 100 09/29/20 15:35 Discharge Plan Discharge Clinical Impression: Abscess of skin or subcutaneous tissue Patient Disposition: Home, Self-Care Condition: Stable Instructions: Antibiotic Form, Abscess (ED) Additional Instructions: Follow up with primary care in the next 2-3 days for re-evaluation return if symptoms worsen or concerns, any increase in redness swelling pain or fever over 100.5 Clean wound with mild soapy water. Apply antibiotic ointment and clean dressing at least three times
== END 2020-09-29 16:38 | disposition home or self-care (01) ==
PROVIDERS: Emergency Provider Emergency Medicine
DX: L02.412 Cutaneous abscess of left axilla (principal)
CPT/HCPCS: 10061; 99283

== ENCOUNTER 2022-03-05 12:41 | Emergency (ER) | payer BC, MEDICAID, SELFPAY ==
[2022-03-05 13:30] VITALS: BP 110/95; PULSE 101; RESP 18; TEMP 37.2; O2SAT 100
--- NOTE | 2022-03-05 13:35 | PC.NURSE ---
Pt scored Moderate risk on columbia scale. Pt states she is bipolar and has depression and has been out of her meds for a while. She states she always has thought but has no plan and doesn't intend on acting on thoughts. States she meditates on the things that would keep her from doing anything like her children and mom. Spoke with both MDs about pt score and they stated it was ok for her to go back to waiting room.
--- NOTE | 2022-03-05 15:06 | PC.NURSE ---
Addendum entered by Linda Moreno RN 03/05/22 15:30: Spoke with EDP. EDP would like pt to have sitter at this time. Pt taken to room 15 per charge out clerk aware of sitter need. Report given to HELEN Landon Original Note: Upon this RN speaking with pt. Pt states I have been having thoughts of hurting myself. I have been thinking I would drive my car off a [place]. I know I wouldn't take pills again because that didn't work the last 2 times. I have these thoughts a lot. Pt states she has not been taking any of her medication since last June. Pt states she use to take: Hydroxazine PRN zoloft daily trazadone at [facility] Pt states she had lapse in her insurance due to loss of job and she has not been able to find a new doctor.
[2022-03-05 15:53] LABS: Basophils Percent Auto 0.4 % (0.2-1.2); Eosinophils Absolute Auto 0.1 K/mm3 (0-0.3); Eosinophils Percent Auto 1.6 % (0-4.4); Hematocrit 32.6 % (37.0-47.0); Hemoglobin 9.3 g/dL (12.0-15.0); Immature Granulocyte Absolute 0.04 K/mm3 (0.00-0.031); Immature Granulocyte Percent A 0.5 % (0-0.5); Lymphocytes Absolute Auto 1.81 K/mm3 (0.9-3.2); Lymphocytes Percent Auto 24.7 % (18.3-44.2); Mean Corpuscular HGB Conc 28.5 g/dl (32-36); Mean Platelet Volume 9.4 fl (7.4-10.4); Monocytes Absolute Auto 0.6 K/mm3 (0.1-0.6); Monocytes Percent Auto 8.4 % (2.6-8.5); Neutrophils Absolute Auto 4.7 K/mm3 (1.3-6.7); Neutrophils Percent Auto 64.4 % (45.5-73.1); Platelet Count Result 297 k/mm3 (150-375); Red Blood Count 4.66 M/mm3 (4.2-5.4); Red Cell Distribution Width 20.1 % (11.5-14.5); White Blood Count 7.3 K/mm3 (4.5-10.0)
[2022-03-05 15:58] LABS: Appearance Urine Clear (Clear); Bilirubin Urine Negative (Negative); Color Urine Yellow (Yellow); Glucose Urine UA Negative (Negative); Ketones Urine Negative (Negative); Leukocyte Esterase Ur Negative LEU/UL (Negative); Nitrate Urine Negative (Negative); Protein Urine Negative (Negative); Specific Grav Ur >= 1.030 (1.001-1.035); Urobilinogen Urine 0.2 mg/dL (<2.0)
[2022-03-05 16:01] LABS: Add Urine Microscopic? YES; Blood Urine Trace-Intact (Negative)
--- NOTE | 2022-03-05 16:01 | ED.ANXIETY ---
HPI - Anxiety General Chief Complaint: Anxiety Stated Complaint: anxiety attack Time Seen by Provider: 03/05/22 15:18 Source: patient Mode of arrival: ambulatory Limitations: no limitations History of Present Illness HPI narrative: Patient is 41 years old -[place] female, history of bipolar with intermittent manic episodes. Patient drove herself to the emergency room because she was very stressed at home, restless, hyperventilating, unable to concentrate or think. Patient reports suicidal thoughts weeks ago, not today. Patient wish to go to sleep and never wake up again, denies any plan to harm herself or harm anybody else. She reports to attempt of suicide in the past. Patient denies any fever, chills, nausea, vomiting, chest pain, shortness of breath, headache or abdominal pain. Patient takes Excedrin for headache as needed. Patient does not smoke, drinks occasionally denies any drug use. Patient does not have a family physician or a psychiatrist. Does not know where she will go when she have nervous breakdown. Related Data Allergies Allergy/AdvReac Type Severity Reaction Status Date / Time No Known Allergies Allergy Verified 03/05/22 15:02 Review of Systems Review of Systems: CONSTITUTIONAL: Denies fever, chills, or sweats. EYES: Denies visual changes, redness, or discharge. ENT: Denies rhinorrhea, congestion, sore throat, or otalgia. CARDIOVASCULAR: Denies chest pain, palpitations, or edema. RESPIRATORY: Denies cough or dyspnea. GASTROINTESTINAL: Denies abdominal pain, nausea, vomiting, or diarrhea. GENITOURINARY: Denies dysuria or hematuria. SKIN: Denies rash or itching. MUSCULOSKELETAL: Denies back pain, joint pain, or myalgia. NEUROLOGIC: Denies headache, numbness, or weakness. PSYCHIATRIC: Denies anxiety or depression. FOR[facility] Past Medical History Medical History (Updated 03/05/22 @ 18:28 by Evans Waldrop MD) Anemia Anxiety Depression PTSD (post-traumatic stress disorder) Twin delivery by Surgical History Surgical History H/O tubal ligation Social History Social History Smoking status: Never smoker Alcohol intake: never Substance use: never Substance use type: does not use Gender identity (if verbalized by the patient): Female Exam Narrative: General appearance: Well-developed, well-nourished Skin: Normal color Head: Normocephalic, nontraumatic Eyes: Clear conjunctiva ENT: Oropharynx normal, ears normal, nose normal Neck: Supple, nontender Chest and respiratory: Airway patent, no respiratory distress, no accessory muscle use Heart: Regular rate/rhythm Abdomen: Soft, nontender, no organomegaly, quiet bowel sounds Vascular: Normal peripheral pulses, normal capillary refill. Musculoskeletal: Normal range of motion, nontender back Neurologic: Alert and oriented ?3, [employer] MAIL [employer]ER is normal as tested, no gross motor deficit Course Course Emergency Course: Stable, improving Reevaluation(s) Reevaluation #1: Patient feeling much better, less agitated, would like to get a pillow to get into until crisis evaluation. Patient is medically clear for psych evaluation. Patient can go home and to follow-up with a psychiatrist/family physician. Date: 03/05/22 Time: 18:23 Vital Signs Vital signs: Vital Signs Temperature 37.2 C 03/05/22 13:30 Pulse Rate 101 H 03/05/22 13:30 Respiratory Rate 18 03/05/22 13:30 Blood Pressure 110/95 H 03/05/22 13:30 Pulse Oximetry 100 03/05/22 13:30 Temperature 37.2 C 03/05/22 13:30 Pulse Rate 101 H 03/05/22 13:30 Respiratory Rate 18 03/05/22 13:30 Blo
--- NOTE | 2022-03-05 16:04 | PC.NURSE ---
Spoke with Dr Waldrop about pt's Myra Suicide scale score - Dr Waldrop states pt does not need a sitter Sitter removed.
[2022-03-05 16:05] LABS: Hypochromasia 2+ (NORMAL); Ovalocytes 1+ (NORMAL); Platelet Estimate Adequate (Adequate); Stomatocytes 1+ (NORMAL)
[2022-03-05 16:07] LABS: Mucus Urine Heavy /lpf; Squamous Epithelial Cell Urine Moderate /hpf (Few)
[2022-03-05 16:09] LABS: Alanine Aminotransferase 26 U/L (4-35); Albumin Level 4.4 g/dL (3.5-5.1); Alkaline Phosphatase 79 U/L (38-126); Anion Gap 6 mmol/L (8-16); Aspartate Amino Transferase 28 U/L (14-36); Bilirubin,Total 0.3 mg/dL (0.2-1.3); Blood Urea Nitrogen 8 mg/dL (7-17); Carbon Dioxide 26 mmol/L (22-30); Chloride 106 mmol/L (98-107); Estimated CRCL calculation 99 ml/min; Estimated Glomerular Filt Rate > 60; Glucose 96 mg/dL (65-110); Potassium 3.6 mmol/L (3.4-5.0); Sodium 138 mmol/L (137-145)
[2022-03-05] MEDS: LORazepam (*CRX) 0.5 MG TABLET 1 MG PO (16:18)
[2022-03-05 18:00] LABS: SARS-CoV-2 RNA PCR Negative
[2022-03-05 19:15] LABS: Amphetamine Screen Urine Negative (Negative); Barbiturate Screen Urine Negative (Negative); Benzodiazepines Screen Urine Negative (Negative); Cannabinoid Screen Urine Positive (Negative); Cocaine Screen Urine Negative (Negative); Methadone Screen Urine Negative (Negative); Opiate Screen Urine Negative (Negative); Phencyclidine Screen Urine Negative (Negative)
--- NOTE | 2022-03-05 19:45 | PC.NURSE ---
Spoke to Rico from Crisis. Patient does not need placement and is ok to be discharged home. He will help set her up with psych support.
[2022-03-05 20:24] VITALS: BP 115/72; PULSE 78; RESP 18; TEMP 36.6; O2SAT 98
== END 2022-03-05 20:31 | disposition home or self-care (01) ==
PROVIDERS: Emergency Medicine; Emergency Provider Emergency Medicine
DX: F41.9 Anxiety disorder, unspecified (principal); F31.9 Bipolar disorder, unspecified; Z20.822 Contact with and (suspected) exposure to COVID-19; D64.9 Anemia, unspecified; F43.10 Post-traumatic stress disorder, unspecified
CPT/HCPCS: 36415; 80053; 80307; 81001; 81025; 84443; 85025; 99283; A9270; C9803; U0003; U0005

== ENCOUNTER 2022-03-27 11:44 | Outpatient (CLI) | payer MEDICAID, SELFPAY ==
--- NOTE | ~2022-03-27 | XR_ITS ---
XR chest 2V DATE: 03/27/2022 12:13 INDICATION: Tobacco use TECHNIQUE: PA and lateral views COMPARISON: None FINDINGS: Normal heart size. No hilar or mediastinal enlargement. No pulmonary infiltrate or consolid ation, pleural effusion or pulmonary vascular congestion or pneumothorax. IMPRESSION: Negative Reviewed, dictated and finalized at location B. IMPRESSION: Negative
[2022-03-27 12:28] LABS: Hematocrit 32.3 % (37.0-47.0); Hemoglobin 9.2 g/dL (12.0-15.0); Mean Corpuscular HGB Conc 28.5 g/dl (32-36); Mean Corpuscular Hemoglobin 20.2 pg (26-34); Mean Platelet Volume 9.6 fl (7.4-10.4); Platelet Count Result 335 k/mm3 (150-375); Red Blood Count 4.55 M/mm3 (4.2-5.4); Red Cell Distribution Width 19.5 % (11.5-14.5); White Blood Count 6.3 K/mm3 (4.5-10.0)
[2022-03-27 12:36] LABS: Cholesterol 260 mg/dL (0-200); HDL Direct 48 mg/dL; Triglycerides 70 mg/dL (<150)
[2022-03-27 12:37] LABS: Hemoglobin A1C 5.5 % (<5.7)
[2022-03-27 12:47] LABS: LDL Cholesterol Direct 150 mg/dL
[2022-03-27 12:51] LABS: Iron 23 ug/dL (37-170)
[2022-03-27 13:09] LABS: Free T4 Free Thyroxine 1.18 ng/mL (0.78-2.19)
== END 2022-03-27 11:45 | disposition home or self-care (01) ==
LOC: ANHLAB 11:50
PROVIDERS: PCP Emergency Medicine; Visit Provider Emergency Medicine
DX: F32.9 Major depressive disorder, single episode, unspecified (principal); F41.9 Anxiety disorder, unspecified; Z72.0 Tobacco use
CPT/HCPCS: 36415; 71046; 80061; 83036; 83540; 84439; 84443; 85027

== ENCOUNTER 2022-05-08 14:59 | Outpatient (CLI) | payer OTHER, SELFPAY ==
--- NOTE | ~2022-05-08 | US_ITS ---
EXAMINATION: US pelvic complete w TV DATE: 05/08/2022 15:44 INDICATION: History of fibroid uterus, myomectomy TECHNIQUE: Multiple transabdominal and endovaginal sonographic images of the pelvis were obtained. COMPARISON: None. FINDINGS: The uterus measures 11.3 x 7.3 x 8.2 cm. There is a 6.3 x 6.3 cm mass of the posterior uter ine body which has the appearance of an intramural fibroid a 2.8 x 2.9 cm mass with similar sonograph ic features in the lower posterior uterine body. Also has the appearance of an intramural fibroid. Th e endometrial complex measures 5 mm. The right ovary measures 2.5 x 1.2 x 3.7 cm. The left ovary alyssa ures 3.0 x 1.3 x 2.8 cm. There is normal vascular flow in the ovaries. There is no free fluid in the pelvis. IMPRESSION: 1. Uterine fibroids measuring up to 6.3 cm. Reviewed, dictated and finalized at location F.
== END 2022-05-08 15:00 | disposition home or self-care (01) ==
PROVIDERS: PCP Emergency Medicine; Visit Provider Obstetrics & Gynecology Gynecology
DX: N93.8 Other specified abnormal uterine and vaginal bleeding (principal); D25.9 Leiomyoma of uterus, unspecified
CPT/HCPCS: 76830; 76856

== ENCOUNTER 2022-06-11 10:14 | Outpatient (CLI) | payer OTHER, SELFPAY ==
--- NOTE | 2022-06-11 10:29 | ECG_ITS ---
Measurements Intervals [place] Rate: 66 P: 44 ME: 134 QRS: 39 QRSD: 101 T: 48 QT: 456 QTc: 479 Interpretive Statements SINUS RHYTHM INCOMPLETE RIGHT BUNDLE BRANCH BLOCK BASELINE ARTIFACT- I, II, III, AVR, AVL, AVF, V1-V6 BORDERLINE ECG Electronically Signed On 06-11-2022 10:54:54 CDT by Nicolás Gillespie D.O.
[2022-06-11 11:21] LABS: Hematocrit 32.8 % (37.0-47.0); Hemoglobin 9.4 g/dL (12.0-15.0)
== END 2022-06-11 10:15 | disposition home or self-care (01) ==
PROVIDERS: Anesthesiology; PCP Emergency Medicine; Visit Provider Obstetrics & Gynecology Gynecology
DX: E78.00 Pure hypercholesterolemia, unspecified (principal); D64.9 Anemia, unspecified; N92.0 Excessive and frequent menstruation with regular cycle; Z01.818 Encounter for other preprocedural examination; I45.10 Unspecified right bundle-branch block
CPT/HCPCS: 36415; 85014; 85018; 86850; 86900; 86901; 93005

== ENCOUNTER 2022-06-16 14:15 | Observation (INO) | payer OTHER, SELFPAY ==
[2022-06-11 09:46] VITALS: BMI 34.3
--- NOTE | 2022-06-11 10:14 | PC.NURSE ---
Report to the Outpatient Waiting Room, entrance under the green pavilion located off [facility], at time _0630 on date _06/15/22_. OR Time: ___. - You and your visitor will be asked a series of questions to screen for COVID 19 for your protection. - Only one visitor is allowed at this time. - The patient visitor is requested to leave or wait in car when not with patient. - A mask is required within the hospital. Patients may have clear liquids (water, carbonated beverages, clear teas, apple juice) until 3 hours prior to surgery with a maximum of 20 ounces. - No food from midnight until time of surgery - Infants may have breast milk until 4 hours before surgery, formula 6 hours prior to surgery. - Children will be allowed to drink immediately following surgery. If applicable, please bring a bottle or sippy cup to assist with drinking. Juice, water, soda, and popsicles are readily available. For infants on formula, please bring formula the day of surgery. Pacifiers are allowed. Take the following medications with a SIP of water the morning of surgery: hold morning meds Medications to discontinue per physician Date to take last dose Please no make-up, nail micronesian, hairspray, perfume, deodorant, or body powder the day of surgery. No jewelry (including any body piercings) or valuables the day of surgery, leave them at home. Please take a shower or bath the night before, or the morning of, surgery with an antibacterial soap. Wear comfortable, loose fitting clothing. Children are encouraged to wear pajamas. - Jewelry must be removed prior to entering the operating room. Rings and piercings that are not removed may be cut off. - The hospital will not accept responsibility for valuables. - Please leave all valuables, including medications, at home the day of surgery. If you are going home after surgery, a licensed hazmat truck driver must drive you home. - NO public transportation without another adult. - We recommend that an adult stay with you for 24 hours following discharge. - We also recommend that you do not drive, make important decision, drink alcoholic beverages, or take any drugs that were not prescribed by your health care provider for at least 24 hours after your discharge time. For Pediatric surgeries, we recommend two adults accompany the child home (only one inside the building at this time). Follow any additional instructions given to you from your surgeon. If you or anyone in your household have experienced Covid symptoms in the past week, please notify your surgeon or the nurse liaison at the phone number below for possible testing. Telephone instructions given to _patient and asked if any additional questions and then verbalized understanding. Patient advised to call surgeon office or pre surgery nurse liaison [phone] if any additional questions.
[2022-06-15] VITALS (15 sets, daily range): BP systolic 99–136; BP diastolic 50–83; PULSE 58–74; RESP 12–20; TEMP 35.8–37.1; O2SAT 92–100
--- NOTE | 2022-06-15 07:04 | WPDHPUPDATE1 ---
History and Physical Update Update Date/Time: 06/15/22 07:04 History and Physical has been reviewed, including an updated exam of the patient. There are NO changes in the patient's condition. Risks, benefits, and alternatives have been discussed and questions answered. Patient agrees to proceed with procedure.
--- NOTE | 2022-06-15 07:04 | PM.IMHP ---
H&P: HPI History of Present Illness Date/Time: 06/15/22 07:04 Chief Complaint: Menorrhagia and dysmenorrhea Narrative: The patient is a 41-year-old with persistent menorrhagia and dysmenorrhea. The patient has undergone MyoSure removal a fibroid and endometrial ablation and 2020. She has tried medical management with multiple doses Prometrium. She continues to have heavy cycles with anemia. Her most recent hemoglobin is 9.4. Further medical management versus hysterectomy were reviewed. Patient has elected to proceed with hysterectomy. Due to her prior delivery and the size of her uterus the plan is for total abdominal hysterectomy with bilateral salpingectomy. Most recent ultrasound reveals a 6x6cm fibroid in addition to an 11cm uterine body. Risks of infection, bleeding, injury to internal organs (bowel, bladder, ureters, ovaries), deep vein thrombosis, and general anesthesia were reviewed. Patient voices understanding and agrees to proceed. Review of Systems Constitutional: Constitutional: Reports headache(s) and Reports night sweats Gastrointestinal: Gastrointestinal: Reports constipation PMFSH Past Medical History Medical History (Updated 06/15/22 @ 07:10 by Suzi Jackson MD) Anemia Anxiety Depression PTSD (post-traumatic stress disorder) Twin delivery by Surgical History Surgical History (Updated 06/15/22 @ 07:08 by Suzi Jackson MD) H/O tubal ligation History of S/P endometrial ablation Status post hysteroscopic myomectomy Social History Social History (Updated 06/15/22 @ 07:09 by Suzi Jackson MD) Years smoked: 9 Smoking status: Current every day smoker Tobacco type: cigarettes Alcohol intake: current Alcohol use details: Occasional social use Substance use: current Substance use type: marijuana Living arrangements: alone Gender identity (if verbalized by the patient): Female Meds Home Medications and Allergies Home Medications Medication Instructions Recorded Confirmed Type clonazepam 0.25 mg disintegrating 0.25 mg PO DAILY Anxiety #14 tabs 03/05/22 06/11/22 Rx tablet ferrous sulfate 325 mg (65 mg 325 mg PO DAILY 06/11/22 06/11/22 History iron) tablet (FeroSul) sertraline 50 mg tablet 50 mg PO DAILY 06/11/22 06/11/22 History simvastatin 20 mg tablet 20 mg PO DAILY 06/11/22 06/11/22 History Allergies Allergy/AdvReac Type Severity Reaction Status Date / Time No Known Allergies Allergy Verified 03/05/22 15:02 Exam Const: General: healthy appearing and alert Orientation/consciousness: patient oriented x3 GI: GI Palp: Yes Soft to palpation, No Tenderness to palpation present (GI) and No Palpable mass present : External Female Exam: normal external appearance Speculum Exam - Vagina: normal appearance of the vagina and normal vaginal discharge Speculum Exam - Cervix: normal appearance of the cervix Bimanual exam- vagina & uterus: consistency normal and enlarged Bimanual Exam- Adnexa, other: normal adnexae and No adnexal tenderness Neuro: General: patient oriented x3 Assessment and Plan Assessment and plan (1) Menorrhagia: Code(s): N92.0 - Excessive and frequent menstruation with regular cycle Status: Acute Assessment and Plan: Plan to proceed with total abdominal hysterectomy and bilateral salpingectomy (2) Anemia: Code(s): D64.9 - Anemia, unspecified Status: Acute (3) Dysmenorrhea: Code(s): N94.6 - Dysmenorrhea, unspecified Status: Acute
--- NOTE | 2022-06-15 07:09 | WPDANESEPPF ---
Anes - Initial Pre Proc Eval Procedure: Operation Date: 06/15/22 07:30 Proposed Procedures p Total Abdominal Hysterectomy, Bilateral Salpingectomy - Suzi Jackson MD Date/Time: 06/15/22 07:09 Surgeon: Suzi Jackson MD Pre Op Diagnosis: Menorrhagia, Dysmenorrhea Patient Data Age: 41 Gender: F Height: 1.63 m Weight: 90.72 kg Allergies Allergy/AdvReac Type Severity Reaction Status Date / Time No Known Allergies Allergy Verified 03/05/22 15:02 Home Medications Medication Instructions Recorded Confirmed Type clonazepam 0.25 mg disintegrating 0.25 mg PO DAILY Anxiety #14 tabs 03/05/22 06/11/22 Rx tablet ferrous sulfate 325 mg (65 mg 325 mg PO DAILY 06/11/22 06/11/22 History iron) tablet (FeroSul) sertraline 50 mg tablet 50 mg PO DAILY 06/11/22 06/11/22 History simvastatin 20 mg tablet 20 mg PO DAILY 06/11/22 06/11/22 History Patient hx anesthesia problems: none Family hx anesthesia problems: none Results Review: All pre-operative results and documents have been reviewed as part of the pre-operative evaluation. [facility] Past Medical History Medical History (Updated 03/06/22 @ 00:00 by Elisabeth Andrade) Anemia Anxiety Depression PTSD (post-traumatic stress disorder) Twin delivery by Surgical History Surgical History (Updated 06/15/22 @ 07:08 by Suzi Jackson MD) H/O tubal ligation History of S/P endometrial ablation Status post hysteroscopic myomectomy Social History Social History Years smoked: 9 Smoking status: Current every day smoker Tobacco type: cigarettes Alcohol intake: current Alcohol use details: Occasional social use Substance use: current Substance use type: marijuana Living arrangements: alone Gender identity (if verbalized by the patient): Female Anes - Eval Final PreProcedure Day of Procedure 06/15/22 07:09 Patient weight: obese Heart: regular rate and rhythm Lungs: clear to auscultation Airway: Mallampati scale class II Neurological: alert and oriented Last oral intake: >/= 8 hours ASA classification: II Emergent: no Anesthetic plan: proceed Anesthesia type and monitoring: general and standard monitoring Results Review: All pre-operative results and documents have been reviewed as part of the pre-operative evaluation. Informed Consent: The patient's anesthetic plan and its attendant risks and benefits were discussed with the patient/family/POA. Questions were solicited and answers provided to the satisfaction of the patient/family/POA.
[2022-06-15] MEDS: ACETAMINOPHEN 500 MG TABLET 1000 MG PO (07:21)
[2022-06-15] MEDS: KETOROLAC 15 MG/ML VIAL (*BKC) IV PUSH (07:22)
[2022-06-15] MEDS: ceFAZolin 2 GM/D5W 50 ML 2 GM/50 ML BAG IVPB (07:41)
--- NOTE | 2022-06-15 09:07 | P.OP_ITS ---
Procedure Note - Detailed Date of Procedure 06/15/22 Pre-op Diagnosis Menorrhagia, Dysmenorrhea Post-op Diagnosis Same Procedure Performed Total abdominal hysterectomy and bilateral salpingectomy Surgeon Suzi Jackson MD Anesthesia General Findings Enlarged fibroid uterus, normal-appearing ovaries, evidence of prior tubal ligation Description of Procedure The patient is taken to the operating room and placed under anesthesia in the dorsal supine position. She was prepped and draped in usual sterile fashion. A Pfannenstiel skin incision was made through her prior incision. The incision was carried down to the fascia which was nicked in the midline with a scalpel. The incision was extended laterally using De La Cruz scissors. [facility] was used to tent the fascia which was then dissected off using sharp dissection due to adhesions. The rectus muscles are in the midline and the peritoneum tented and entered with a Peon. The peritoneal incision was extended with blunt traction. The pelvis is investigated and the above-stated findings were noted. The bowel was packed away using moist laparotomy sponges. The Tamika retractor was placed. The uterus was grasped on the cornu with large peans. The round ligaments were doubly ligated with 0 Vicryl, transected, and the anterior leaf of the broad ligament incised meeting in the midline. The bladder was dissected off using sharp and blunt dissection. A window was created in the posterior leaf of the broad ligament and the distal tube was grasped with a Jessica. The utero-ovarian ligament is crossclamped incorporating the misosalpinx. The pedicle is incised. Pedicle was tied off using 0 Vicryl. The uterine vessels are skeletonized, clamped, transected, and suture ligated with 0 Vicryl. The cardinal and uterosacral ligaments are serially clamped, transected, and suture ligated with 0 Vicryl. The uterosacral ligaments were tagged for future use. The vaginal cuff was entered during the last pedicle. The vaginal cuff was clamped with Allis clamps anteriorly and posterior. The specimen was amputated with Dionte scissors. The vaginal cuff was closed using 0 Vicryl in a running locked fashion incorporating the previously tagged uterosacral ligaments. The pelvis is irrigated and the right ovary peritoneum had some minimal bleeding. This was tied off using a running stitch of 0 Vicryl. One additional [id number] suture was required in the right angle of the cuff for hemostasis. The pelvis is irrigated and noted to be hemostatic. Hemoderm was placed over the ovarian pedicles peritoneum as well as over the vaginal cuff. The sponges and retractor are removed. The fascia was closed using 0 Vicryl in a running fashion. Subcutaneous tissues were made hemostatic using Bovie cautery. The subcutaneous tissues were irrigated and noted to be hemost atic. Skin is closed using 4-0 Vicryl in a subcuticular fashion. Dermaflex was placed over the incision. Sponge, needle, and instrument counts are correct per the OR staff. Patient was awakened from anesthesia and taken to recovery in stable condition. Estimated Blood Loss 125 Drains Yes (Clemens catheter) Packing No Pathology Yes (Uterus and bilateral tubes) Complications No immediate complications Condition Stable Disposition PACU
--- NOTE | 2022-06-15 09:15 | PM.DS ---
DS: Admitting Diagnosis Discharge Date 06/17/22 Admitting Diagnosis Menorrhagia, anemia, and dysmenorrhea DS: Discharge Diagnosis Discharge Diagnosis (1) Status post total abdominal hysterectomy: Code(s): Z90.710 - Acquired absence of both cervix and uterus Status: Acute (2) Menorrhagia: Code(s): N92.0 - Excessive and frequent menstruation with regular cycle Status: Acute (3) Dysmenorrhea: Code(s): N94.6 - Dysmenorrhea, unspecified Status: Acute (4) Anemia: Code(s): D64.9 - Anemia, unspecified Status: Acute DS: Summary Hospital Course Hospital Course: Prior to discharge the patient is tolerating regular diet, voiding, and ambulating. Patient has good pain control. Status at Discharge Functional status at discharge: independent ambulation Overall status at discharge: patient is progressing back to baseline Time Spent with Patient Time attestation: Total time spent providing and/or coordinating discharge services: DS: Data Data Completed and Pending Pending studies at discharge: Pending at discharge 06/15/22 08:09 Surgical [PTH] Routine Discharge Plan Discharge Attending physician on discharge: Suzi Jackson Consulting providers: Helen Harris Discharging Clinician: Suzi Jackson Patient Disposition: Home, Self-Care Activity: may shower, may drive after 2 weeks and pelvic rest Diet: regular Wound Care Instructions: incision open to air Patient Instructions: How to Stop Smoking (DC), Hysterectomy (DC), Pain Management After Surgery (DC) Stand Alone Forms: General Discharge Instructions Follow-up/Referrals: Suzi Jackson MD [Physician] - 1 Week Discharge Medications: New hydrocodone-acetaminophen 5-325 mg Tablet 1 tablet PO Q3H PRN (Reason: Pain Rated 5 Or Less) Qty: 20 0RF Continued clonazepam 0.25 mg tablet,disintegrating 0.25 mg PO DAILY Qty: 14 0RF simvastatin 20 mg tablet 20 mg PO DAILY ferrous sulfate [FeroSul] 325 mg (65 mg iron) tablet 325 mg PO DAILY sertraline 50 mg tablet 50 mg PO DAILY Date of admission: 06/16/22 14:15 Primary Care Provider: Deejay Ramon Admitting Provider: Suzi Jackson Attending physician on admission: Suzi Jackson Condition: Stable
[2022-06-15] MEDS: LACTATED RINGERS 1,000 ML 30 ML IV CONT ×2 (09:21)
[2022-06-15] MEDS: fentaNYL CITRATE INJ (*CRX) 100 MCG/2 ML VIAL 25 MCG IV PUSH ×2 (10:22→10:29)
[2022-06-15] MEDS: KETOROLAC 30 MG/ML VIAL (*BKC) IV PUSH ×2 (11:36→19:51)
[2022-06-15] MEDS: DEXTROSE 5%/LACTATED RINGERS 1,000 ML 125 ML IV CONT ×2 (11:38→19:47)
[2022-06-15] MEDS: FENTANYL 600MCG/NS30MLPCA(*CRX 600 MCG/30 ML PCA.VIAL IV CONT (11:40)
--- NOTE | 2022-06-15 11:46 | PC.NURSE ---
This patient, Niurka Daly, was received from PACU on 06/15/22 at 1146. Patient/family oriented to unit policies and routines
[2022-06-15] MEDS: SIMETHICONE 80 MG TAB.CHEW PO ×2 (17:31→19:47)
[2022-06-16 02:00] VITALS: BP 106/47; PULSE 79; RESP 20; TEMP 37.4
[2022-06-16] MEDS: SIMETHICONE 80 MG TAB.CHEW PO ×2 (03:54→13:38)
[2022-06-16] MEDS: HYDROcodone/acetaminophen (*CRX) 5-325 MG TABLET 1 TAB PO (03:54)
[2022-06-16] MEDS: IBUPROFEN 600 MG TABLET PO ×3 (03:55→20:56)
[2022-06-16 04:00] VITALS: BP 111/43; PULSE 65; RESP 20; TEMP 36.6
[2022-06-16] MEDS: BISACODYL 10 MG SUPPOSITORY (04:11)
[2022-06-16 05:12] LABS: Basophils Percent Auto 0.1 % (0.2-1.2); Hemoglobin 8.4 g/dL (12.0-15.0); Immature Granulocyte Absolute 0.05 K/mm3 (0.00-0.031); Immature Granulocyte Percent A 0.3 % (0-0.5); Lymphocytes Absolute Auto 1.09 K/mm3 (0.9-3.2); Lymphocytes Percent Auto 7.2 % (18.3-44.2); Mean Corpuscular Volume 72.5 fl (80-100); Mean Platelet Volume 9.9 fl (7.4-10.4); Monocytes Absolute Auto 1.6 K/mm3 (0.1-0.6); Monocytes Percent Auto 10.7 % (2.6-8.5); Neutrophils Absolute Auto 12.3 K/mm3 (1.3-6.7); Neutrophils Percent Auto 81.7 % (45.5-73.1); Platelet Count Result 287 k/mm3 (150-375); Red Cell Distribution Width 20.5 % (11.5-14.5); White Blood Count 15.1 K/mm3 (4.5-10.0)
[2022-06-16 05:39] LABS: Anisocytosis 1+ (NORMAL); Hypochromasia 1+ (NORMAL); Ovalocytes 1+ (NORMAL); Platelet Estimate Adequate (Adequate)
--- NOTE | 2022-06-16 07:04 | P.PNAN_ITS ---
Anes - Prog Note Post-Op Date/Time: 06/16/22 07:04 Cardiovascular status: normal Respiratory status: normal Airway patency: baseline Mental status: baseline Post-Op hydration status: normal Vital Signs: Last Vital Signs Temp 36.6 C 06/16/22 04:00 Pulse 65 06/16/22 04:00 Resp 20 06/16/22 04:00 BP 111/43 L 06/16/22 04:00 Pulse Ox 98 06/15/22 19:30 O2 Del Method Room Air 06/15/22 19:30 O2 Flow Rate 6 06/15/22 09:45 Pain Score (VAS): 2 I/O: Intake & Output 06/15/22 06/15/22 06/16/22 15:59 23:59 07:59 Intake Total 1300 1120 1380 Output Total 076 197 4558 Balance 1190 320 30 Laboratory Tests 06/16/22 04:13 06/16/22 04:13 WBC 15.1 H RBC 4.00 L Hgb 8.4 L Hct 29.0 L MCV 72.5 L MCH 21.0 L MCHC 29.0 L RDW 20.5 H Plt Count 287 MPV 9.9 Immature Gran % (Auto) 0.3 Neut % (Auto) 81.7 H Lymph % (Auto) 7.2 L [place] % (Auto) 10.7 H Eos % (Auto) 0.0 Baso % (Auto) 0.1 L Lymph # (Auto) 1.09 [place] # (Auto) 1.6 H Eos # (Auto) 0.0 Baso # (Auto) 0.0 Abs Immat Gran (auto) 0.05 H Absolute Neuts (auto) 12.3 H Absolute Nucleated RBC 0.0 Nucleated RBC % 0.0 Platelet Estimate Adequate Hypochromasia 1+ Anisocytosis 1+ Ovalocytes 1+ Patient Feedback: Patient satisfied with anesthetic care.
--- NOTE | 2022-06-16 07:44 | PM.GYNPNOP ---
PRESS ASSISTANT - A/P Postoperative Procedures: Procedures Operation Date: 06/15/22 07:30 Actual Procedure Side Surgeon p Total Abdominal Hysterectomy, Bilateral Salpingectomy Bilateral Suzi Jackson MD Postoperative day: 1 Postoperative status: doing well Postoperative plan: routine post-op care Time Spent With Patient Time: Total time spent is greater than 50% in coordination of care (as documented) at patient's floor/unit and/or counseling patient: Time with patient: less than 15 minutes PRESS ASSISTANT- PN:Subj Post-Op Subjective Date/time seen: 06/16/22 07:44 Subjective: patient reports feeling better and other (complains of gas pain) Exam Narrative: inc c/d/i abdomen soft, nt PRESS ASSISTANT - PN: Obj Data Vital Signs Vital Signs: Vital Signs - 24 hr 06/15/22 09:21 06/15/22 09:30 06/15/22 09:45 Temperature 98.8 F Pulse Rate 72 72 60 Respiratory Rate 15 14 18 Blood Pressure 100/55 L 112/60 130/83 Pulse Oximetry 99 100 100 Oxygen Delivery Simple Face Mask Simple Face Mask Simple Face Mask Oxygen Flow Rate 6 6 6 06/15/22 10:00 06/15/22 10:15 06/15/22 10:30 Temperature Pulse Rate 70 72 74 Respiratory Rate 18 17 12 Blood Pressure 136/79 116/71 119/74 Pulse Oximetry 99 96 99 Oxygen Delivery Room Air Room Air Room Air Oxygen Flow Rate 06/15/22 10:50 06/15/22 11:40 06/15/22 12:35 Temperature 97.9 F Pulse Rate 65 Respiratory Rate 20 16 16 Blood Pressure 113/60 Pulse Oximetry 92 98 100 Oxygen Delivery Oxygen Flow Rate 06/15/22 15:00 06/15/22 15:00 06/15/22 13:30 Temperature 98.3 F Pulse Rate 68 Respiratory Rate 18 18 Blood Pressure 103/57 L Pulse Oximetry 99 100 Oxygen Delivery Room Air Oxygen Flow Rate 06/15/22 14:30 06/15/22 15:30 06/15/22 19:30 Temperature 98.2 F Pulse Rate 67 Respiratory Rate 16 18 16 Blood Pressure 111/50 L Pulse Oximetry 99 99 98 Oxygen Delivery Oxygen Flow Rate 06/15/22 19:30 06/16/22 02:00 06/16/22 02:00 Temperature 99.4 F Pulse Rate 67 79 Respiratory Rate 16 20 20 Blood Pressure 106/47 L Pulse Oximetry 98 Oxygen Delivery Room Air Oxygen Flow Rate 06/16/22 04:00 06/16/22 04:00 Temperature 97.8 F Pulse Rate 65 Respiratory Rate 20 20 Blood Pressure 111/43 L Pulse Oximetry Oxygen Delivery Oxygen Flow Rate Intake/Output Intake/Output: Intake & Output 06/13/22 06/14/22 06/15/22 06/16/22 23:59 23:59 23:59 23:59 Intake Total 2420 1380 Output Total 910 1350 Balance 1510 30 Meds/Results Medications: Active Medications Generic Name Dose Route Start Last Admin Trade Name Freq PRN Reason Stop Dose Admin Hydrocodone Bitart/Acetaminophen 1 tab 06/15/22 10:40 Hydrocodone/Acetaminophen (*Crx) 10-325 Mg Tablet PO Q3H PRN Pain Rated 6 or Greater Hydrocodone Bitart/Acetaminophen 1 tab 06/15/22 10:40 06/16/22 03:54 Hydrocodone/Acetaminophen (*Crx) 5-325 Mg Tablet PO 1 tab Q3H PRN Administration Pain Rated 5 or Less Clonazepam 0.25 mg 06/15/22 11:53 Clonazepam (*Crx) 0.5 Mg Tablet PO DAILY PRN Anxiety Ferrous Sulfate 324 mg 06/16/22 09:00 Ferrous Sulfate 324 Mg Tablet PO DAILY BRENDA Dextrose/Lactated Ringer's 1,000 mls @ 125 mls/hr 06/15/22 10:40 06/16/22 03:52 Dextrose 5%/Lactated Ringers IV CONT Infused .Q8H BRENDA Infusion Fentanyl Citrate 600 mcg in 30 mls @ 0.5 mls/hr 06/15/22 11:11 06/16/22 04:00 Fentanyl 600 Mcg/Ns 30 Ml Manager Of Program IV CONT Infused PRN PRN Titration USED CAR LOT ATTENDANT Management Protocol 10 MCG/HR Ibuprofen 600 mg 06/15/22 10:40 06/16/22 03:55 Ibuprofen 600 Mg Tablet PO 600 mg Q6H PRN Administration Cramping Ketorolac Tromethamine 30 mg 06/15/22 10:40 06/15/22 19:51 Ketorolac 30 Mg/Ml Vial (*Bkc) IV PUSH 06/20/22 10:39 30 mg Q6H PRN Administration Pain Rated 4-6 Naloxone HCl 0.1 mg 08/01/22 10:40 Naloxone Hcl 0.4 Mg/Ml Vial IV PUSH Q2M PRN
[2022-06-16 09:30] VITALS: BP 107/52; PULSE 60; RESP 18; TEMP 36.6; O2SAT 100
--- NOTE | 2022-06-16 09:30 | PC.NURSE ---
PT introductions made and plan of care discussed per post op residential program coordinator surgery , pain management, daily care activities and gas discomfort. PT received such instructions per one to one discussion, demonstrations this shift. PT showed no barriers to learning at this time and verbalized understanding of such care.
--- NOTE | 2022-06-16 09:41 | PC.NURSE ---
Pt sitting up in chair with face to back, leaning over. Pt states she has severe gas pain which as been present since last night. Pt states she does not want anything by mouth until she passed gas. Dulcolex suppository (0400 dose) noted on table beside pt. Pt states she does not know how to use it. Discussed options for pain management with pt. Will use Dulcoex and k -pad and pt will continue to attempt to pass gas. Abdomen noted to be soft. Dulcolex given. Pt encouraged to call staff if no relief.
[2022-06-16 09:45] VITALS: BP 107/52; PULSE 60; RESP 18; TEMP 36.6; O2SAT 100
[2022-06-16 13:03] VITALS: BP 128/78; PULSE 84; RESP 18; TEMP 36.4; O2SAT 99
[2022-06-16] MEDS: SERTRALINE HCL 50 MG TABLET PO (13:38)
[2022-06-16] MEDS: FERROUS SULFATE 324 MG TABLET PO (13:39)
[2022-06-16] MEDS: SIMVASTATIN 20 MG TABLET PO (13:39)
[2022-06-16] MEDS: ACETAMINOPHEN 325 MG TABLET 650 MG (13:42)
[2022-06-16 20:50] VITALS: BP 137/88; PULSE 64; RESP 16; TEMP 36.8
[2022-06-16] MEDS: ACETAMINOPHEN 325 MG TABLET 650 MG PO (20:56)
[2022-06-16] MEDS: BISACODYL 10 MG SUPPOSITORY RECTAL (20:58)
[2022-06-17] MEDS: SIMETHICONE 80 MG TAB.CHEW PO ×2 (03:04→09:21)
[2022-06-17 08:00] VITALS: BP 118/44; PULSE 65; RESP 18; TEMP 36.3; O2SAT 100
--- NOTE | 2022-06-17 08:01 | WPDPN ---
Progress Note: A&P Assessment and Plan (1) Post-op pain: Code(s): G89.18 - Other acute postprocedural pain Status: Acute Assessment and Plan: Pain well controlled. (2) Status post total abdominal hysterectomy: Code(s): Z90.710 - Acquired absence of both cervix and uterus Status: Acute Assessment and Plan: Healing well (3) Anemia: Code(s): D64.9 - Anemia, unspecified Status: Acute Assessment and Plan: Denies dizziness. Ambulating without difficulty Plan Discharge home today. POD 2. Subjective Date/time seen: 06/17/22 0740 Review of Systems Review of Systems: Pt c/o gas pain. Passing flatus. Has had small BM. She is sitting up in the chair. No acute distress. No vaginal bleeding. Exam Const: Orientation/consciousness: patient oriented x3 Limitations: no limitations Resp: Effort & Inspection: normal respiratory effort and able to speak in complete sentences Auscultation: clear to auscultation bilaterally Cardio: Rate: regular rate Peripheral pulses: Peripheral pulses 2+ throughout GI: Inspection: normal to inspection Auscultation: normal bowel sounds : General: Yes bladder normal to palpation Bimanual exam- vagina & uterus: bladder normal to palpation Other: Fundus firm Skin: General skin exam: normal color Other: Incision C/D/I. Skin glue in place. Neuro: General: patient oriented x3 Cognition (Neuro): normal cognition Speech: normal speech Extrem: General: normal to inspection Psych: Appearance: grossly normal Mental Status: mental status grossly normal Speech and movement: Normal speech and movement present Affect: normal affect Attitude: cooperative Thought process: Normal thought process present Objective Data Vital Signs Vital Signs: Vital Signs - 24 hr 06/16/22 09:45 06/16/22 09:30 06/16/22 09:30 Temperature 97.8 F 97.8 F Pulse Rate 60 60 60 Respiratory Rate 18 18 18 Blood Pressure 107/52 L 107/52 L Pulse Oximetry 100 100 100 Oxygen Delivery Room Air Room Air 06/16/22 13:03 06/16/22 20:50 06/16/22 20:50 Temperature 97.5 F L 98.3 F Pulse Rate 84 64 Respiratory Rate 18 16 Blood Pressure 128/78 137/88 Pulse Oximetry 99 Oxygen Delivery Room Air Intake/Output Intake/Output: Intake & Output 06/14/22 06/15/22 06/16/22 06/17/22 23:59 23:59 23:59 23:59 Intake Total 2420 1860 Output Total 910 1350 Balance 1510 510 Meds/Results Medications: Active Medications Generic Name Dose Route Start Last Admin Trade Name Freq PRN Reason Stop Dose Admin Acetaminophen 650 mg 06/16/22 20:57 06/16/22 20:56 Acetaminophen 325 Mg Tablet PO 650 mg Q6H PRN Administration Headache Hydrocodone Bitart/Acetaminophen 1 tab 06/15/22 10:40 Hydrocodone/Acetaminophen (*Crx) 10-325 Mg Tablet PO Q3H PRN Pain Rated 6 or Greater Hydrocodone Bitart/Acetaminophen 1 tab 06/15/22 10:40 06/16/22 03:54 Hydrocodone/Acetaminophen (*Crx) 5-325 Mg Tablet PO 1 tab Q3H PRN Administration Pain Rated 5 or Less Clonazepam 0.25 mg 06/15/22 11:53 Clonazepam (*Crx) 0.5 Mg Tablet PO DAILY PRN Anxiety Ferrous Sulfate 324 mg 06/16/22 09:00 06/16/22 13:39 Ferrous Sulfate 324 Mg Tablet PO 324 mg DAILY BRENDA Administration Ibuprofen 600 mg 06/15/22 10:40 06/16/22 20:56 Ibuprofen 600 Mg Tablet PO 600 mg Q6H PRN Administration Cramping Ketorolac Tromethamine 30 mg 06/15/22 10:40 06/15/22 19:51 Ketorolac 30 Mg/Ml Vial (*Bkc) IV PUSH 06/20/22 10:39 30 mg Q6H PRN Administration Pain Rated 4-6 Naloxone HCl 0.1 mg 06/15/22 10:40 Naloxone Hcl 0.4 Mg/Ml Vial IV PUSH Q2M PRN Respiratory rate less than 10 Ondansetron HCl 4 mg 06/15/22 10:40 Ondansetron Inj 4 Mg/2 Ml Vial IV PUSH Q6H PRN Nausea Polyethylene Glycol 17 gm 06/17/22 09:00 Polyethylene Glycol 3350 17 Gm Powd.Pack PO QAM BRENDA
[2022-06-17] MEDS: SIMVASTATIN 20 MG TABLET PO (09:21)
[2022-06-17] MEDS: SERTRALINE HCL 50 MG TABLET PO (09:21)
[2022-06-17] MEDS: IBUPROFEN 600 MG TABLET PO (09:21)
[2022-06-17] MEDS: FERROUS SULFATE 324 MG TABLET PO (09:21)
[2022-06-17] MEDS: ACETAMINOPHEN 325 MG TABLET 650 MG PO (09:22)
[2022-06-17 09:30] VITALS: BP 118/44; PULSE 65; RESP 18; TEMP 36.3; O2SAT 100
== END 2022-06-17 14:50 | disposition home or self-care (01) ==
PROVIDERS: Admitting Provider Obstetrics & Gynecology Gynecology; PCP Emergency Medicine; Visit Provider Obstetrics & Gynecology Gynecology
PROC: 0UT94ZZ Resection of Uterus, Percutaneous Endoscopic Approach (ICD-10-PCS; CPT 58150; principal; 2022-06-15 07:30)
DX: N92.0 Excessive and frequent menstruation with regular cycle (principal); N94.6 Dysmenorrhea, unspecified; D25.1 Intramural leiomyoma of uterus; D25.2 Subserosal leiomyoma of uterus; D25.0 Submucous leiomyoma of uterus; N80.0 Endometriosis of uterus; N72 Inflammatory disease of cervix uteri; G89.18 Other acute postprocedural pain; Z98.891 History of uterine scar from previous surgery; N99.85 Post endometrial ablation syndrome; Z98.51 Tubal ligation status; D64.9 Anemia, unspecified; F41.9 Anxiety disorder, unspecified; F32.A Depression, unspecified; F43.10 Post-traumatic stress disorder, unspecified; F17.210 Nicotine dependence, cigarettes, uncomplicated; F12.90 Cannabis use, unspecified, uncomplicated; Z79.891 Long term (current) use of opiate analgesic; Z79.899 Other long term (current) drug therapy
CPT/HCPCS: 58150; 36415; 85025; 88307; A9270; G0378; G0379; J0330; J0690; J1100; J1170; J1885; J2250; J2405; J2704; J2710; J2765; J3010; J7120; J7121

== ENCOUNTER → 2024-06-02 12:14 | Outpatient (CLI) | payer OTHER, SELFPAY ==
--- NOTE | ~2024-06-02 | XR_ITS ---
Clinical Indication: Tobacco use PA and lateral views of the chest: Comparison: 03/27/2022 Findings: The lungs are clear, without evidence of focal consolidation or pleural effusion. Cardiome diastinal silhouette is within normal limits. Bones and soft tissues are unremarkable. Impression: Normal chest. Reviewed, dictated and finalized at location . Impression: Normal chest.
== END ==
PROVIDERS: PCP Emergency Medicine; Visit Provider Emergency Medicine
DX: M25.561 Pain in right knee (principal); M25.562 Pain in left knee; Z72.0 Tobacco use
CPT/HCPCS: 71046; 73562